=== PATIENT | female | born 1955 | race Caucasian/White ===

== ENCOUNTER 2020-03-14 14:57 | Outpatient (REF) | payer OTHER, SELFPAY | END 2020-03-14 14:58 | disposition home or self-care (01) | LOC: HO.LAB 14:57 | PROVIDERS: PCP Family Medicine; Visit Provider Internal Medicine | DX: Z20.828 Contact with and (suspected) exposure to other viral communicable diseases (principal) | CPT/HCPCS: U0003 ==

== ENCOUNTER 2020-07-26 08:56 | Outpatient (REF) | payer OTHER, SELFPAY ==
--- NOTE | ~2020-07-26 | MM_ITS ---
EXAMINATION: MM SCREENING DIGITAL BREAST TOMOSYNTHESIS, BILATERAL CLINICAL INFORMATION: Screening. Asymptomatic. The lifetime risk of breast cancer based on the Tyrer-Cuzick Model is 15%. COMPARISON: Mammography: 11/16/2018, 09/03/2017, 10/14/2014 TECHNIQUE: Digital breast tomosynthesis is performed in both the craniocaudal and mediolateral oblique views along with computer-aided detection (CAD). Synthesized 2D images are generated from the tomosynthesis. FINDINGS: The breasts are almost entirely fatty (ACR BI-RADS breast composition Category a). There are no significant masses, abnormal calcifications, or other abnormalities. Background stromal and fibroglandular densities are stable. There is no developing density. The axilla and skin contours are unremarkable. MM/MM tomosynthesis screening BI IMPRESSION: No mammographic evidence of malignancy. ASSESSMENT: BI-RADS 1: Negative RECOMMENDATION: Routine annual mammography screening. This patient's information was entered into a reminder system with a target due date for their next mammogram.
== END 2020-07-26 08:57 | disposition home or self-care (01) ==
LOC: HO.MAMMO 08:56
PROVIDERS: PCP Family Medicine; Visit Provider Family Medicine
DX: Z12.31 Encounter for screening mammogram for malignant neoplasm of breast (principal)
CPT/HCPCS: 77063; 77067

== ENCOUNTER 2021-01-05 16:01 | Emergency (ER) | payer OTHER, SELFPAY | END 2021-01-05 16:45 | disposition left against medical advice (07) | LOC: HO.ED 16:44 | PROVIDERS: Emergency Provider Emergency Medicine; PCP Family Medicine | DX: R10.9 Unspecified abdominal pain (principal) ==

== ENCOUNTER 2021-08-08 08:39 | Outpatient (REF) | payer OTHER, SELFPAY ==
--- NOTE | ~2021-08-08 | MM_ITS ---
EXAMINATION: MM SCREENING DIGITAL BREAST TOMOSYNTHESIS, BILATERAL CLINICAL INFORMATION: Screening. Asymptomatic. The lifetime risk of breast cancer based on the Tyrer-Cuzick Model is 14%. COMPARISON: Mammography: 07/26/2020, 11/16/2018, 09/03/2017 TECHNIQUE: Digital breast tomosynthesis is performed in both the craniocaudal and mediolateral oblique views along with computer-aided detection (CAD). Synthesized 2D images are generated from the tomosynthesis. FINDINGS: There are scattered areas of fibroglandular density (ACR BI-RADS breast composition Category b). Breast tissue composition borders on predominantly fatty. Background stromal and fibroglandular densities are similar to prior studies. There are incidental intramammary nodes posterior breasts. There are no significant masses, abnormal calcifications, or other abnormalities. No significant changes from prior studies. MM/MM tomosynthesis screening BI IMPRESSION: No mammographic evidence of malignancy. ASSESSMENT: BI-RADS 1: Negative RECOMMENDATION: Routine annual mammography screening. This patient's information was entered into a reminder system with a target due date for their next mammogram.
== END 2021-08-08 08:40 | disposition home or self-care (01) ==
LOC: HO.MAMMO 08:39
PROVIDERS: PCP Family Medicine; Visit Provider Family Medicine
DX: Z12.31 Encounter for screening mammogram for malignant neoplasm of breast (principal)
CPT/HCPCS: 77063; 77067

== ENCOUNTER 2022-08-14 08:33 | Outpatient (REF) | payer OTHER, SELFPAY ==
--- NOTE | ~2022-08-14 | MM_ITS ---
EXAMINATION: MM SCREENING DIGITAL BREAST TOMOSYNTHESIS, BILATERAL CLINICAL INFORMATION: Screening. Asymptomatic. The lifetime risk of breast cancer based on the Tyrer-Cuzick Model is 15%. COMPARISON: Mammography: 08/08/2021, 07/26/2020, 11/16/2018 TECHNIQUE: Digital breast tomosynthesis is performed in both the craniocaudal and mediolateral oblique views along with computer-aided detection (CAD). Synthesized 2D images are generated from the tomosynthesis. FINDINGS: The breasts are almost entirely fatty (ACR BI-RADS breast composition Category a). There are no significant masses, abnormal calcifications, or other abnormalities. Parenchymal pattern is similar to prior studies. Background stromal and fibroglandular densities are similar to exams and there is no developing density or architectural abnormality. The axilla are unremarkable. Skin contours are smooth. MM/MM tomosynthesis screening BI IMPRESSION: No mammographic evidence of malignancy. ASSESSMENT: BI-RADS 1: Negative RECOMMENDATION: Routine annual mammography screening. This patient's information was entered into a reminder system with a target due date for their next mammogram.
== END 2022-08-14 08:34 | disposition home or self-care (01) ==
LOC: HO.MAMMO 08:33
PROVIDERS: Visit Provider Family Medicine
DX: Z12.31 Encounter for screening mammogram for malignant neoplasm of breast (principal)
CPT/HCPCS: 77063; 77067

== ENCOUNTER 2023-03-24 09:58 | Inpatient (IN) | payer MEDICARE, OTHER, SELFPAY ==
[2023-03-24] VITALS (16 sets, daily range): BP systolic 109–146; BP diastolic 63–86; PULSE 65–100; RESP 16–18; TEMP 36.1–37.5; O2SAT 92–98; BMI 33.8
--- NOTE | ~2023-03-24 | CT_ITS ---
EXAMINATION: CT ABDOMEN AND PELVIS WITH CONTRAST CLINICAL INFORMATION: Lower abdominal pain. COMPARISON: None available. TECHNIQUE: Multidetector volumetric images were obtained from the superior aspect of the liver through the pubic symphysis following administration 85 mL of Omnipaque 350 intravenous contrast. Sagittal and coronal reformatted images were obtained on the technologist's workstation. Oral contrast: No This CT examination was performed using dose optimization techniques as appropriate, variously including the following: *Automated exposure control *Adjustment of mA and/or kV according to patient size (this includes techniques or standardized protocols for targeted exams where dose is matched to indication/reason for exam; i.e. extremities or head) *Use of iterative reconstruction technique DLP: 749 mGy-cm FINDINGS: LUNG BASES: Large hiatal hernia. LIVER, GALLBLADDER, AND BILIARY TREE: The liver is decreased in attenuation. No biliary ductal dilatation is present. The gallbladder is surgically absent. PANCREAS: Unremarkable. SPLEEN: Unremarkable. ADRENAL GLANDS: Unremarkable. KIDNEYS AND URETERS: The kidneys are symmetric in size and enhancement. Nonobstructing bilateral renal calculi. No hydronephrosis or perinephric stranding. BLADDER: Unremarkable. GASTROINTESTINAL TRACT: Dilated small bowel loops measuring up to 2.5 cm proximal to the ventral hernia. Distal small bowel loops are relatively decompressed. Scattered diverticula. ABDOMINAL WALL: Small fat-containing umbilical hernia. There is a infraumbilical ventral hernia containing dilated small bowel loops measuring up to 2.5 cm. The hernia measures 9.1 x 11.8 x 6.5 cm. There is fluid in the hernia sac with associated mesenteric edema. The neck of the hernia measures 2.6 cm. LYMPH NODES: No bulky lymphadenopathy. VASCULAR: Normal caliber abdominal aorta. PELVIC VISCERA: Unremarkable. OSSEOUS STRUCTURES: No destructive bone lesions. Anterior wedging of T11 and T12 vertebral bodies. CT/CT abdomen pelvis w IV con IMPRESSION: 9.1 x 11.8 x 6.5 cm ventral hernia containing small bowel. There is proximal dilatation of the small bowel wall up to 2.5 cm while exiting distal small bowel loops are relatively decompressed. Findings most likely represent incarcerated ventral hernia with developing small bowel obstruction. Surgical consultation is advised.
[2023-03-24 10:19] LABS: MANUAL DIFF FLAG NO
[2023-03-24 10:20] LABS: Basophils Absolute Auto 0.1 X10*3/uL (0.0-0.2); Basophils Percent Auto 0.8 % (0-2); Eosinophils Percent Auto 0.2 % (0-4); Hematocrit 45.7 % (37.0-47.0); Hemoglobin 14.8 g/dl (12.0-16.0); Imm Gran Abs Auto 0.04 X10*3/uL (0.00-0.03); Imm Gran Pct Auto 0.4 % (0.0-0.4); Lymphocytes Absolute Auto 1.1 X10*3/uL (1.2-4.9); Lymphocytes Percent Auto 10.6 % (20-40); Mean Corpuscular HGB Conc 32.4 g/dl (31.0-35.0); Mean Corpuscular Hemoglobin 28.6 pg (27.0-33.0); Mean Corpuscular Volume 88.2 fL (80.0-98.0); Mean Platelet Volume 11.3 fL (9.4-12.3); Monocytes Absolute Auto 0.4 X10*3/uL (0.1-1.2); Monocytes Percent Auto 3.3 % (2-11); Neutrophils Percent Auto 84.7 % (45-73); Platelet Count 201 X10*3/uL (160-400); Red Blood Count 5.18 X10*6/uL (4.20-5.50); Red Cell Distribution Width 13.8 % (11.0-16.0); White Blood Count 10.7 X10*3/uL (4.8-10.8)
--- NOTE | 2023-03-24 10:24 | ED_ITS ---
HPI - General Adult General Chief complaint: Abdominal Pain Stated complaint: Abd pain Time Seen by Provider: 03/24/23 10:16 Source: patient Mode of arrival: ambulatory Limitations: no limitations History of Present Illness HPI narrative: Patient is a 67-year-old female with a PMH of gallstones s/p cholecystectomy and abdominal hernia presenting for several weeks of abdominal discomfort worsening over the last 6 hours with associated nausea and vomiting. She states the pain is in the LLQ where the known hernia is. At baseline she says the hernia does not cause discomfort. Her GI surgeon instructed her to go to the emergency department due to concern for stragulation/incarceration and bowel obstruction. Last bowel movement was this morning still passing gas. Denies fever, chills, headache, lightheadedness, chest pain, sob, diarrhea, consipation, urinary symptoms, and weakness. Related Data Allergies Allergy/AdvReac Type Severity Reaction Status Date / Time No Known Allergies Allergy Unverified 01/27/20 16:07 Review of Systems 2 Review of Systems: Constitutional : No Weight loss, No Fever, No Chills, No Fatigue, No Malaise ENT/Mouth : No sore throat, No Rhinorrhea Eyes: No Eye Pain, No Swelling, No Redness Cardiovascular : No Chest Pain, No SOB, No Dyspnea on Exertion, No Orthopnea, No Edema, No Palpitations Respiratory : No Cough, No Sputum, No Wheezing Gastrointestinal : + Nausea, + Vomiting, No Diarrhea, No Constipation, + abdominalm Pain, No Hematochezia, No Melena Genitourinary : No Dysuria, No Urinary Frequency, No Hematuria, Musculoskeletal : No joint pain, No Myalgias, No Joint Swelling Skin : No Skin Lesions, No rash Neuro : No Weakness, No Numbness, No Dizziness, No Headache Psych : No Anxiety/Panic, No Depression All other systems reviewed and are negative Yes all other systems are reviewed and are negative [facility] Past Medical History Attestation statement: The following information was validated with the patient. Source: old records reviewed and nursing notes reviewed Social History Social History Smoked in Last 30 Days: No Use of substances other than those prescribed or required for medical reasons: No Advance Directives: No Advance Directives Information Provided: Yes Physical Exam ED Vital Signs: Vital Signs - 24 hr 03/24/23 10:05 03/24/23 12:00 Temperature 98.0 F 98.8 F Pulse Rate 74 91 Respiratory Rate 18 18 Blood Pressure 130/74 137/82 Pulse Oximetry 98 93 Oxygen Delivery Method Room Air BMI result Body Mass Index 33.8 vss Appearance: Alert.? Oriented X3.? No acute distress.? Head: Normocephalic, atraumatic, no step-offs or deformities Eyes: Pupils equal, round and reactive to light.? ENT: Pharynx normal.??External ears normal. Neck: Normal inspection.? Neck supple.? CVS: Normal heart rate and rhythm.? Pulses normal.? Respiratory: No respiratory distress.? Breath sounds normal.? Abdomen: Tenderness and large firm mass in the LLQ hard to reduce secondary to pain. No rebound tenderness. Normoactive bowel sounds. Skin: Skin warm and dry.? Normal skin color.? Normal skin turgor.? Extremities: No lower extremity edema.? No calf ttp. 5/5 strength to bilateral upper and lower extremities Back: No midline tenderness, no C-spine tenderness, full range of motion, no CVA tenderness bilaterally Neuro: Oriented X 3.? No motor deficit.? No sensory deficit. Course Reevaluation(s) Reevaluation #1: CBC within normal limits. Chemistry no acute findings requiring intervention. Normal lactic acid. CPK elevated 183. I did reach out to General surgery before CT scan resulted I am concerned for incarcerated ventral hernia question containing small bowel loops. Patient remains NPO Time: 12:22 Reevaluation #2: 9.1 by Leary 0.8 x 6.5 ventral hernia containing small bowel proximal dilation of the small bowel wall up to 2.5 cm while exiting the distal small bowel loops are relatively decompressed concerning for incarcerated ventral hernia with developing SBO. General surgery to take patient to the operating room at this time. Time: 13:14 Medications Administered Discontinued Medications Generic Name Dose Route Start Last Admin Trade Name Freq PRN Reason Stop Dose Admin Hydromorphone HCl 0.5 mg 03/24/23 12:38 03/24/23 12:57 Hydromorphone Hcl 0.5 Mg/0.5 Ml Syringe IVPUSH 03/24/23 12:39 0.5 mg ONCE ONE Administration Protocol Iohexol 85 ml 03/24/23 12:03 03/24/23 12:05 Iohexol 350 Mg/Ml 75 Ml Infus..Btl IV 03/24/23 12:04 85 ml ONCE ONE Administration Morphine Sulfate 4 mg 03/24/23 10:51 03/24/23 11:35 Morphine Sulfate 4 Mg/Ml Cartridge IVPUSH 03/24/23 10:52 4 mg ONCE ONE Administration Protocol Medical Decision Making Medical Decision Making [facility] Narrative: 1042 67-year-old female with a PMH of gallstones s/p cholecystectomy and abdominal hernia presenting for acutely worsening abdominal discomfort associated with n/v PE w/ tenderness and large firm mass in the LLQ Concern for strangulated or incarcerated herniation vs. SBO secondary to adhesions. Unlikely acute abdomen, ischemic colitis, diverticulitis, appendicitis, ovarian mass, kidney stone, atypical MA, AAA, or aortic dissection. Plan- labs, urine, imaging Differential Diagnosis Differential Diagnoses: The differential diagnosis associated with the presentation includes Concern for strangulated or incarcerated herniation vs. SBO secondary to adhesions. Unlikely acute abdomen, ischemic colitis, diverticulitis, appendicitis, ovarian mass, kidney stone, atypical MA, AAA, or aortic dissection. Admission/Observation Consideration of admission/observation: Escalation of care including admission/observation considered Consult Healthcare Provider Management of the patient was discussed with: Pier Worker (general surgery ) Lab Data [facility] Lab Attestation statement: I reviewed the patient's lab results. 03/24/23 10:15 03/24/23 10:15 Labs: Lab Results 03/24/23 03/24/23 Range/Units 10:15 11:24 WBC 10.7 (4.8-10.8) X10*3/uL RBC 5.18 (4.20-5.50) X10*6/uL Hgb 14.8 (12.0-16.0) g/dl Hct 45.7 (37.0-47.0) % MCV 88.2 (80.0-98.0) fL MCH 28.6 (27.0-33.0) pg MCHC 32.4 (31.0-35.0) g/dl RDW 13.8 (11.0-16.0) % Plt Count 201 (160-400) X10*3/uL MPV 11.3 (9.4-12.3) fL Immature Gran % (Auto) 0.4 (0.0-0.4) % Neut % (Auto) 84.7 H (45-73) % Lymph % (Auto) 10.6 L (20-40) % [place] % (Auto) 3.3 (2-11) % Eos % (Auto) 0.2 (0-4) % Baso % (Auto) 0.8 (0-2) % Lymph # (Auto) 1.1 L (1.2-4.9) X10*3/uL [place] # (Auto) 0.4 (0.1-1.2) X10*3/uL Eos # (Auto) 0.0 (0.0-0.4) X10*3/uL Baso # (Auto) 0.1 (0.0-0.2) X10*3/uL Abs Immat Gran (auto) 0.04 H (0.00-0.03) X10*3/uL Absolute Neuts (auto) 9.0 H (2.0-8.3) x10*3/uL Absolute Nucleated RBC 0.000 (0.0-0.012) X10*3/uL Nucleated RBC % (auto) 0.0 (0.0-0.2) /100WBC Sodium 141 (135-145) mmol/L Potassium 4.1 (3.3-5.1) mmol/L Chloride 102 (96-108) mmol/L Carbon Dioxide 26 (22-29) mmol/L Anion Gap 17 (12-20) BUN 12 (9-16) mg/dL Creatinine 0.83 (0.5-1.4) mg/dL Estim Creat Clear Calc 67.8 Estimated GFR > 60 Random Glucose 186 H (60-115) mg/dL Lactic Acid 1.8 (0.5-2.0) mmol/L Calcium 10.3 H (8.4-10.2) mg/dL Total Bilirubin 0.6 (0.0-1.0) mg/dL Direct Bilirubin 0.2 (0.0-0.5) mg/dL AST 17 (5-31) U/L ALT 20 (0-31) U/L Alkaline Phosphatase 84 (39-117) U/L Total Creatine Kinase 183 H (26-140) U/L Total Protein 7.2 (6.5-8.0) g/dL Albumin 4.2 (3.5-5.0) g/dL Lipase 12 (8-78) U/L Independent Interpretation I performed an independent interpretation of an: CT Scan (CT/CT abdomen pelvis w IV con IMPRESSION: 9.1 x 11.8 x 6.5 cm ventral hernia containing small bowel. There is proximal dilatation of the small bowel wall up to 2.5 cm while exiting distal small bowel loops are relatively decompressed. Findings most likely represent incarcerated ventral hernia w) Radiology Impression Discussion of test interpretation with radiology: I have reviewed the radiologist's reading. External Record Review External record reviewed: Inpatient record, Office record, Outpatient record, Prior outpatient labs, Primary care record and Outside ED record Critical Care Time Critical Care Time Critical Care Time: Yes Total Critical Care Time: 45 Attestation: I attest to this time spent taking care of the patient, obtaining history, physical, reviewing labs, imaging, speaking to my attending, speaking to specialist. Discharge Plan Discharge Clinical Impression: Incarcerated ventral hernia, SBO (small bowel obstruction) Patient Disposition: Admitted As Inpatient
[2023-03-24 10:44] LABS: Anion Gap 17 (12-20)
[2023-03-24 10:48] LABS: Alanine Aminotransferase 20 U/L (0-31); Albumin Level 4.2 g/dL (3.5-5.0); Alkaline Phosphatase 84 U/L (39-117); Aspartate Amino Transferase 17 U/L (5-31); Bilirubin Direct 0.2 mg/dL (0.0-0.5); Bilirubin Total 0.6 mg/dL (0.0-1.0); Blood Urea Nitrogen 12 mg/dL (9-16); Calcium 10.3 mg/dL (8.4-10.2); Carbon Dioxide 26 mmol/L (22-29); Chloride 102 mmol/L (96-108); Creatinine Clr Calc Pharmacy 67.8; Estimated Glomerular Filt Rate > 60; Glucose Random 186 mg/dL (60-115); Lipase 12 U/L (8-78); Potassium 4.1 mmol/L (3.3-5.1); Sodium 141 mmol/L (135-145); Total Protein 7.2 g/dL (6.5-8.0)
[2023-03-24] MEDS: Morphine Sulfate 4 MG/ML CARTRIDGE IVPUSH (11:35)
[2023-03-24 11:43] LABS: Lactic Acid 1.8 mmol/L (0.5-2.0)
[2023-03-24] MEDS: iohexoL 350 MG/ML 75 ML INFUS..BTL 85 ML IV (12:05)
[2023-03-24] MEDS: HYDROmorphone HCl 0.5 MG/0.5 ML SYRINGE IVPUSH (12:57)
--- NOTE | 2023-03-24 12:57 | HO.ANESPROP2 ---
[facility] Active Problems Active Problems: vertigo GERD Surgical History Surgical History Hx laparoscopic cholecystectomy History of Problems with Anesthesia: No Social History Social History Patient Tobacco Use Status: Current everyday Tobacco user Tobacco use type: Cigarette Cigarettes Per Day: 10 Meds Allergies Allergy/AdvReac Type Severity Reaction Status Date / Time No Known Allergies Allergy Unverified 01/27/20 16:07 Exam Exam Date and Time: March 24, 2023 1257 Height,Weight and Vital Signs: Height 5 ft 2 in Weight 83.915 kg Last Vital Signs Temp 98.8 F 03/24/23 12:00 Pulse 91 03/24/23 12:00 Resp 18 03/24/23 12:00 BP 137/82 03/24/23 12:00 Pulse Ox 93 03/24/23 12:00 O2 Del Method Room Air 03/24/23 12:00 Pertinent Lab Results Pertinent Lab Results: Laboratory Tests 03/24/23 03/24/23 10:15 11:24 WBC 10.7 RBC 5.18 Hgb 14.8 Hct 45.7 MCV 88.2 MCH 28.6 MCHC 32.4 RDW 13.8 Plt Count 201 MPV 11.3 Immature Gran % (Auto) 0.4 Neut % (Auto) 84.7 H Lymph % (Auto) 10.6 L [place] % (Auto) 3.3 Eos % (Auto) 0.2 Baso % (Auto) 0.8 Lymph # (Auto) 1.1 L [place] # (Auto) 0.4 Eos # (Auto) 0.0 Baso # (Auto) 0.1 Abs Immat Gran (auto) 0.04 H Absolute Neuts (auto) 9.0 H Absolute Nucleated RBC 0.000 Nucleated RBC % (auto) 0.0 Sodium 141 Potassium 4.1 Chloride 102 Carbon Dioxide 26 Anion Gap 17 BUN 12 Creatinine 0.83 Estim Creat Clear Calc 67.8 Estimated GFR > 60 Random Glucose 186 H Lactic Acid 1.8 Calcium 10.3 H Total Bilirubin 0.6 Direct Bilirubin 0.2 AST 17 ALT 20 Alkaline Phosphatase 84 Total Creatine Kinase 183 H Total Protein 7.2 Albumin 4.2 Lipase 12 Airway Mallampati Class: II TM Dist: >3cm Neck ROM: Full Loose/Missing/Broken Teeth: No Heart: RRR Lungs: CTA Assessment and Plan Assessment Anesthesia Assessment: Anesthesia Plan Discussed and Chart Reviewed Final Anesthetic Review History of Problems with Anesthesia: No NPO: Yes ASA Class: II and Emergency Final Preanesthetic Review: Meds/Allgs Chart Reviewed, Consent Obtained/Reviewed and Anes Risks/Benef Reviewed Patient Risk: High (full stomach precautions ) Procedure Risk: Intermediate Anesthetic Plan Anesthetic Plan: GA Disposition: Standard PACU
--- NOTE | 2023-03-24 13:06 | PC.NURSE ---
Meghan Christi (daughter) [phone] All belongings including silver colored jewlery will be taken home by daughter. Pt in agreement
--- NOTE | 2023-03-24 13:08 | P.HPGS_ITS ---
History of Present Illness History of Present Illness Date of Service: 03/24/23 Chief complaint: Abd pain Narrative: Mary Jo Barraza is a 67 year old female with PMH of GERD, vertigo, hx of laparoscopic cholecystectomy who presents to the ED with complaints of acute onset abdominal pain. Pt states she has a known hernia at her umbilicus and reports she woke up at 5 this morning with severe abdominal pain at the hernia site. She tried to sip coffee and developed nausea and vomiting. She went to the bathroom in attempts to alleviate her pain and did have a bowel movement early this morning however she has not been passing gas since onset of the pain. She reports bloating. She called her GI doctor who advised her to come to the ED for evaluation. In the ED, CT scan abd/pelvis was performed which shows a hernia at the umbilicus with incarcerated loops of bowel. CBC, BMP were obtained which were WNL. Lactic acid was normal. Attempts at reduction in the ED were performed but were unsuccessful due to pain. She reports continued severe pain despite analgesics. Review of Systems Constitutional: Constitutional: Denies chills and Denies fever(s) ENT: Denies dizziness Cardiovascular: Cardiovascular: Denies chest pain, Denies palpitations and Denies dyspnea Respiratory: Respiratory: Denies cough and Denies dyspnea Gastrointestinal: Gastrointestinal: Reports as per HPI and Denies diarrhea Genitourinary: Genitourinary: Denies hematuria and Denies dysuria Integumentary/Breasts: Skin/Breast: Denies rash and Denies jaundice Neurologic: Denies dizziness Endocrine: Endocrine: Denies palpitations [facility] Surgical History Surgical History (Updated 03/24/23 @ 13:28 by Praveena Scanlon PA-C) Hx laparoscopic cholecystectomy Social History Social History Smoked in Last 30 Days: No Use of substances other than those prescribed or required for medical reasons: No Advance Directives: No Advance Directives Information Provided: Yes Meds Allergies Allergy/AdvReac Type Severity Reaction Status Date / Time No Known Allergies Allergy Unverified 01/27/20 16:07 Physical Exam Vital Signs: Vital Signs: Last Vital Signs Temp 98.8 F 03/24/23 12:00 Pulse 91 03/24/23 12:00 Resp 18 03/24/23 12:00 BP 137/82 03/24/23 12:00 Pulse Ox 93 03/24/23 12:00 O2 Del Method Room Air 03/24/23 12:00 BMI result Body Mass Index 33.8 Const: General: comfortable, no acute distress and alert Orientation/consciousness: patient oriented x3 Resp: Effort & Inspection: normal respiratory effort Cardio: Rate: regular rate GI: Inspection: Yes distended and Yes scar Palpation (GI): Soft to palpation, Tenderness to palpation present (GI) (marked tenderness at umbilicus; unable to reduce ), no guarding and not rigid Percussion: Yes normal to percussion Skin: General skin exam: no rashes or lesions noted Neuro: General: patient oriented x3 Extrem: General: Yes no clubbing, cyanosis or edema Results Results Labs: Short CBC 03/24/23 Range/Units 10:15 WBC 10.7 (4.8-10.8) X10*3/uL Hgb 14.8 (12.0-16.0) g/dl Hct 45.7 (37.0-47.0) % Plt Count 201 (160-400) X10*3/uL BMP 03/24/23 10:15 Sodium 141 Potassium 4.1 Chloride 102 Carbon Dioxide 26 BUN 12 Creatinine 0.83 Calcium 10.3 H Cardiac Enzymes 03/24/23 Range/Units 10:15 Total Creatine Kinase 183 H (26-140) U/L Liver Function 03/24/23 Range/Units 10:15 Total Bilirubin 0.6 (0.0-1.0) mg/dL Direct Bilirubin 0.2 (0.0-0.5) mg/dL AST 17 (5-31) U/L ALT 20 (0-31) U/L Alkaline Phosphatase 84 (39-117) U/L Albumin 4.2 (3.5-5.0) g/dL Assessment and Plan (1) Incarcerated ventral hernia: Status: Acute (2) SBO (small bowel obstruction): Status: Acute Plan 67 year old female with hx of laparoscopic cholecystectomy who developed acute onset of abdominal pain, nausea and vomiting found to have umbilical hernia with incarcerated small bowel loops and associated small bowel obstruction on CT scan. Patient in significant amount of pain and hernia unable to be reduced. It was therefore recommended to proceed with repair of incarcerated hernia with mesh. Technique of the procedure, risks and benefits including infection, bleeding, injury to bowel, hernia recurrence were discussed. She understands and wants to proceed. She was added onto the OR schedule for today. Quality Stroke Does the patient have a stroke diagnosis?: No VTE Prior VTE?: No VTE Risk Level:: Surgical - high VTE Device Contraindication: N/A - Device Ordered VTE Drug Contraindication: N/A - Med Ordered Procedures Date of Service Date of Service: 03/24/23
[2023-03-24 13:26] LABS: Appearance Urine Clear; Color Urine Yellow; Glucose Urine UA Negative (Negative); Leukocyte Esterase Urine Negative (Negative); Nitrite Urine Negative (Negative); PH 7.5 (5.0-9.0); Specific Gravity - Urine >= 1.030 (1.005-1.025); Urine Blood Negative (Negative); Urine Ketones 15 mg/dL (Negative); Urine Protein Negative (Neg-Trace)
--- NOTE | 2023-03-24 15:30 | P.OP_ITS ---
Operative Note Operative Note Date of Service: 03/24/23 Narrative: Preoperative diagnosis: [] Incarcerated strangulated ventral incisional hernia Postop diagnosis: [] Same Procedure [] exploratory laparotomy, reduction of incarcerated, strangulated hernia, primary hernia repair with Bard mesh Surgeon: [] Sharad Air Conditioning Manager: [] Capo Type of Anesthesia: [] General Indication for surgery: [] Infraumbilical ventral incarcerated strangulated incisional hernia with small bowel contents. Very small opening in the hernia defect. Transition zone of dilated edematous proximal bowel and decompressed bowel was found. Bowel was edematous, and dilated but viable and uneventfully reduced. Very corpulent abdomen Findings: [] Patient brought to the operating room, placed on operative table in supine position, after adequate level of general anesthesia was induced, the patient's abdomen is prepped and draped in usual sterile fashion. Using an infraumbilical midline incision, this carried down through skin, subcutaneous tissue, where a very massive hernia sac was identified and circumferentially dissected down to fascia. Sac was opened where findings were as noted above. Small bowel was uneventfully reduced. Redundant hernia sac was amputated using Bovie. Fascia margins were circumferentially cleared. An appropriately sized Bard mesh was placed in the defect, and the superficial layer of the mesh was circumferentially sutured to the surrounding fascia using interrupted 0 Ethibond suture. A completion the procedure, mesh was in good position with no tension or gaps. Was irrigated, secured hemostasis, and closed in the following manner; subcutaneous tissue was reapproximated using up to 3-0 Vicryl sutures. Interrupted inverted deep dermal 3-0 Vicryl sutures followed by running subcuticular 4-0 Vicryl sutures were placed. Steri-Strips and sterile dressings were applied. Wound was infiltrated 0.5% Marcaine at completion. Sponge, needle, instrument counts reported correct. Patient tolerated procedure well and emerged anesthesia stable condition. EBL minimal
[2023-03-24] MEDS: 0.9 % Sodium Chloride Flush 3 ML SYRINGE IVFLUSH ×2 (18:28→19:55)
[2023-03-24] MEDS: Lactated Ringers 1,000 ML 80 ML IVCONT (18:28)
--- NOTE | 2023-03-24 20:01 | PHA.MEDREC ---
Pharmacy Consult ? Medication Reconciliation Pharmacy has completed the medication reconciliation. Patient reported medications. Nica Kenyon, CarterD
[2023-03-24] MEDS: Acetaminophen 325 MG TABLET 650 MG PO (23:25)
[2023-03-25 02:56] VITALS: BP 121/82; PULSE 66; RESP 18; TEMP 36.3; O2SAT 96
--- NOTE | 2023-03-25 04:47 | PC.NURSE ---
pt had a hernia repair at the abd. under the umbilical cord. dressing is clean and intact, binder in place. pt walking to the BR afew tiems with no problems. mild pain provided tylenol as pt's request. BS is active all 4 quadrants with mild tender, most soft abd, educated to pt how to use I.S. and post-op care. Avoid strenuous activities, such as biking, jogging, weight lifting, or aerobic exercise, until your doctor says it is okay. I.S 1500mL with good effectiveness. lung sounds dim to clear. will cont monitor s/s of post op. vitals are stable as document. BP 121/82 HR 66, RA 96%
[2023-03-25] MEDS: Lactated Ringers 1,000 ML 80 ML IVCONT (05:10)
[2023-03-25 08:00] VITALS: BP 118/85; PULSE 76; RESP 16; TEMP 36.7; O2SAT 95
--- NOTE | 2023-03-25 08:03 | PM.PNGS ---
Subjective Subjective Date of Service: 03/25/23 Interval history: Feels well this morning. Has mild pain at incision site and is comfortable with tylenol. Tolerating solid diet without nausea or vomiting. Passing flatus. OOB to bathroom without difficulty. Wants to go home. Physical Exam Vital Signs: Vital Signs: Last Vital Signs Temp 97.4 F 03/25/23 02:56 Pulse 66 03/25/23 02:56 Resp 18 03/25/23 02:56 BP 121/82 03/25/23 02:56 Pulse Ox 96 03/25/23 02:56 O2 Del Method Room Air 03/25/23 02:56 O2 Flow Rate 6 03/24/23 15:10 BMI result Body Mass Index 33.8 Const: General: comfortable, no acute distress and alert Orientation/consciousness: patient oriented x3 Resp: Effort & Inspection: normal respiratory effort GI: Inspection: No distended and Yes incision (dressing c/d/i) Palpation (GI): Soft to palpation, Tenderness to palpation present (GI) (mild incisional), no guarding and not rigid Percussion: Yes normal to percussion Skin: General skin exam: no rashes or lesions noted Neuro: General: patient oriented x3 and moves all extremities Objective Data Active Medications Acetaminophen (Acetaminophen 325 Mg Tablet) 650 mg PO Q6H PRN PRN Reason: Pain, Mild (Pain Scale 1-3) Last Admin: 03/24/23 23:25 Dose: 650 mg Documented By: RIO Al Hydroxide/Mg Hydroxide (Magnesium Hydrox/Alum Hydrox 30 Ml Oral.Susp) 30 ml PO Q6H PRN PRN Reason: Heartburn Heparin Sodium (Porcine) (Heparin Sodium,Porcine 5,000 Unit/Ml Vial) 5,000 unit SUBCUT Q8H [facility] Lactated Ringer's (Lr) 1,000 mls @ 80 mls/hr IVCONT .[id number] [facility] Last Admin: 03/25/23 05:10 Dose: 80 mls/hr Documented By: RIO Melatonin (Melatonin 3 Mg Tablet) 6 mg PO BEDTIME PRN PRN Reason: Insomnia Morphine Sulfate (Morphine Sulfate 2 Mg/Ml Cartridge) 4 mg IVPUSH Q4H PRN; Protocol PRN Reason: Pain, Severe (Pain Scale 7-10) Nicotine (Nicotine 7 Mg Patch.Td24) 7 mg TRANSDERMA DAILY [facility] Ondansetron HCl (Ondansetron Hcl 4 Mg/2 Ml Vial) 4 mg IVPUSH Q8H PRN PRN Reason: Nausea and Vomiting Oxycodone HCl (Oxycodone Hcl Immed Release 5 Mg Tablet) 5 mg PO Q4H PRN PRN Reason: Pain, Moderate(Pain Scale 4-6) Sodium Chloride (0.9 % Sodium Chloride Flush 3 Ml Syringe) 3 ml IVFLUSH QSHIFT [facility] Last Admin: 03/24/23 19:55 Dose: 3 ml Documented By: RIO Labs 03/24/23 10:15 03/24/23 10:15 Labs: Laboratory Results - last 24 hr 03/24/23 03/24/23 03/24/23 10:15 11:24 13:09 MCV 88.2 MCH 28.6 MCHC 32.4 RDW 13.8 Plt Count 201 MPV 11.3 Immature Gran % (Auto) 0.4 Neut % (Auto) 84.7 H Lymph % (Auto) 10.6 L [facility] % (Auto) 3.3 Eos % (Auto) 0.2 Baso % (Auto) 0.8 Lymph # (Auto) 1.1 L [facility] # (Auto) 0.4 Eos # (Auto) 0.0 Baso # (Auto) 0.1 Abs Immat Gran (auto) 0.04 H Absolute Neuts (auto) 9.0 H Absolute Nucleated RBC 0.000 Nucleated RBC % (auto) 0.0 Anion Gap 17 Estim Creat Clear Calc 67.8 Estimated GFR > 60 Random Glucose 186 H Lactic Acid 1.8 Calcium 10.3 H Total Bilirubin 0.6 Direct Bilirubin 0.2 AST 17 ALT 20 Alkaline Phosphatase 84 Total Creatine Kinase 183 H Total Protein 7.2 Albumin 4.2 Lipase 12 Urine Color Yellow Urine Appearance Clear Urine pH 7.5 Ur Specific [place] >= 1.030 H Urine Protein Negative Urine Glucose (UA) Negative Urine Ketones 15 Urine Blood Negative Urine Nitrite Negative Ur Leukocyte Esterase Negative Procedures Date of Service Date of Service: 03/25/23 Progress Note: A&P Assessment and plan (1) Incarcerated ventral hernia: Status: Acute Plan POD #1 s/p repair of incarcerated incisional hernia with mesh. She is doing well post op with good pain control, tolerating solid diet and with GI function. Abd is benign with appropriate post op tenderness, dressing c/d/i. Stable for dc to home today, f/u in 1 week in office. Patient comfortable with plan. Time Spent With Patient Time: Total time managing care of this patient today ____ minutes. Quality Stroke Does the patient have a stroke diagnosis?: No VTE Prior VTE?: No VTE Risk Level:: Surgical - high VTE Device Contraindication: N/A - Device Ordered VTE Drug Contraindication: N/A - Med Ordered
[2023-03-25] MEDS: 0.9 % Sodium Chloride Flush 3 ML SYRINGE IVFLUSH (08:05)
[2023-03-25] MEDS: Omeprazole 20 MG CAPSULE.DR PO (08:05)
--- NOTE | 2023-03-25 09:06 | MHC.CM.PN ---
pt dcd home no servies
--- NOTE | 2023-03-25 09:40 | PM.DS ---
DS: Providers Provider Date of Service: 03/25/23 Date of admission: 03/24/23 14:45 Date of discharge: 03/25/23 Primary care physician: Pito Meza MD Attending physician on admission: Duarte Orourke Attending physician on discharge: Duarte Orourke DS: Diagnosis Discharge Diagnosis (1) Incarcerated ventral hernia: Status: Acute DS: Summary Hospital Course Hospital Course: HPI AT ADMISSION: Mary Jo Barraza is a 67 year old female with PMH of GERD, vertigo, hx of laparoscopic cholecystectomy who presents to the ED with complaints of acute onset abdominal pain. Pt states she has a known hernia at her umbilicus and reports she woke up at 5 this morning with severe abdominal pain at the hernia site. She tried to sip coffee and developed nausea and vomiting. She went to the bathroom in attempts to alleviate her pain and did have a bowel movement early this morning however she has not been passing gas since onset of the pain. She reports bloating. She called her GI doctor who advised her to come to the ED for evaluation. In the ED, CT scan abd/pelvis was performed which shows a hernia at the umbilicus with incarcerated loops of bowel. CBC, BMP were obtained which were WNL. Lactic acid was normal. Attempts at reduction in the ED were performed but were unsuccessful due to pain. She reports continued severe pain despite analgesics. HOSPITAL COURSE:She was admitted to the surgical service for further treatment of her incarcerated incisional hernia. It was recommended to proceed with reduction and repair of the incarcerated incisional hernia given the concern for strangulation of the bowel loops given ongoing pain. She was added onto the OR schedule for that day. On 03/24/23, exploratory laparotomy, reduction of incarcerated, strangulated hernia, primary hernia repair with Bard mesh was performed by Dr. Orourke without complication. The patient tolerated the procedure well and was admitted to the medical/surgical floor for observation. She had an uncomplicated recovery course. On POD #1, she felt well with adequate pain control with Tylenol, tolerating a solid diet with evidence of GI function. Her abdomen was benign with appropriate post op tenderness and dressing c/d/i. She felt ready for discharge. She was discharged to home on 03/25/23 in stable condition. She is to follow up in the office in [address] Orourke. Status at Discharge Functional status at discharge: independent ambulation Overall status at discharge: patient is progressing back to baseline Time Attestation Discharge coordination time: Less than 30 minutes Quality: Safe Use of Opioids Does Pt have an Active Cancer Diagnosis on the Problem List?: No Quality: Stroke Does the patient have a stroke diagnosis?: No Physical Exam Vital Signs: Vital Signs: Last Vital Signs Temp 98.1 F 03/25/23 08:00 Pulse 76 03/25/23 08:00 Resp 16 03/25/23 08:00 BP 118/85 03/25/23 08:00 Pulse Ox 95 03/25/23 08:00 O2 Del Method Room Air 03/25/23 08:00 O2 Flow Rate 6 03/24/23 15:10 BMI result Body Mass Index 33.8 Const: General: comfortable, no acute distress and alert Orientation/consciousness: patient oriented x3 Resp: Effort & Inspection: normal respiratory effort GI: Inspection: No distended and Yes incision (dressing c/d/i) Palpation (GI): Soft to palpation, Tenderness to palpation present (GI) (mild incisional), no guarding and not rigid Percussion: Yes normal to percussion Skin: General skin exam: no rashes or lesions noted Neuro: General: patient oriented x3 and moves all extremities DS: Data Data Completed and Pending Pending studies at discharge: Pending at discharge 03/24/23 14:46 Surgical [PTH] Routine Labs on day of discharge: Laboratory Results - last 24 hr 03/24/23 03/24/23 03/24/23 10:15 11:24 13:09 WBC 10.7 RBC 5.18 Hgb 14.8 Hct 45.7 MCV 88.2 MCH 28.6 MCHC 32.4 RDW 13.8 Plt Count 201 MPV 11.3 Immature Gran % (Auto) 0.4 Neut % (Auto) 84.7 H Lymph % (Auto) 10.6 L [facility] % (Auto) 3.3 Eos % (Auto) 0.2 Baso % (Auto) 0.8 Lymph # (Auto) 1.1 L [facility] # (Auto) 0.4 Eos # (Auto) 0.0 Baso # (Auto) 0.1 Abs Immat Gran (auto) 0.04 H Absolute Neuts (auto) 9.0 H Absolute Nucleated RBC 0.000 Nucleated RBC % (auto) 0.0 Sodium 141 Potassium 4.1 Chloride 102 Carbon Dioxide 26 Anion Gap 17 BUN 12 Creatinine 0.83 Estim Creat Clear Calc 67.8 Estimated GFR > 60 Random Glucose 186 H Lactic Acid 1.8 Calcium 10.3 H Total Bilirubin 0.6 Direct Bilirubin 0.2 AST 17 ALT 20 Alkaline Phosphatase 84 Total Creatine Kinase 183 H Total Protein 7.2 Albumin 4.2 Lipase 12 Urine Color Yellow Urine Appearance Clear Urine pH 7.5 Ur Specific [place] >= 1.030 H Urine Protein Negative Urine Glucose (UA) Negative Urine Ketones 15 Urine Blood Negative Urine Nitrite Negative Ur Leukocyte Esterase Negative Discharge Plan Discharge Anticipated Discharge Date/Time: 03/25/23 07:33 Patient Disposition: Home, Self-Care Discharge Diagnosis: incarcerated hernia, s/p repair with mesh Referrals: Pito Meza MD [Primary Care Provider] - 1 Week Duarte Orourke MD [Physician] - 1 Week Discharge Medications: New docusate sodium [Colace] 100 mg capsule 100 mg PO BID PRN (Reason: constipation) Qty: 30 0RF oxycodone 5 mg tablet 5 mg PO Q4H PRN (Reason: pain (scale score 7-10)) Qty: 20 0RF Rx Instructions: Partial Fill upon patient request. Continued multivitamin Tablet 1 tab PO DAILY omeprazole 20 mg Capsule,Delayed Release(Dr/Ec) 20 mg PO DAILY Systane (PF) 0.4-0.3 % Dropperette 1 drp OPHTHALMIC (EYE) BID Discharge Orders: Discharge Order (Routine); Ordered 03/25/23 Ordered By: Praveena Scanlon Diet: Advance to usual diet Activity on Discharge: No heavy lifting Stand Alone Forms: Patient Portal Discharge page, Work/School Release Activity Restrictions/Additional Instructions: Apply an ice pack for short intervals (20 minutes on, followed by at least 20 minutes off) for the first 2 days. Do not apply heat. Do not use creams, lotions, or topical antibiotics. These can cause infection or allergic reaction. Ok to shower 48 hours after your surgery. Remove dressings in 2 days and replace as needed. You have steri strips (small white cloth strips) covering your incision- these will fall off ~1 week. Follow up in office with Dr. Orourke in 1 week. ([phone]) No heavy lifting (>10lbs) or strenuous activity! Call Your Doctor If: -Your temperature exceeds 101.5? F -You experience excessive pain or swelling -You have an unexpected reaction to medication -You have excessive bleeding -You experience continued vomiting/nausea -Your incision begins to separate -Your incision shows signs of infection such as increased redness, swelling, excessive pain, drainage (light blood or clear fluid is normal) or heat Care Plan Goals: Return to baseline health and resume normal activities following recovery period. Health Concerns: incarcerated incisional hernia SBO Plan of Treatment: s/p repair of incarcerated incisional hernia with mesh Assessment: Doing well post op
--- NOTE | 2023-03-25 12:57 | HO.POSTANES ---
Post Anesthesia Evaluation Post Anesthesia Evaluation Date of Service: 03/25/23 Vital Signs: Vital Signs Temp Pulse Resp BP Pulse Ox O2 Del Method 03/25/23 08:00 98.1 F 76 16 118/85 95 Room Air 03/25/23 02:56 97.4 F 66 18 121/82 96 Room Air Anesthesia: General Endotracheal-GETA Mental Status: Awake Pain Control: Satisfactory Nausea/Vomiting: None Hydration: Adequate Anesthesia-Related Issues: No Anes. Related Issues
== END 2023-03-25 10:45 | disposition home or self-care (01) | DRG 355 ==
LOC: HO.ED 13:12 → HO.SSS 13:22 → HO.EDOVER 17:38 → HO.S3 18:11
PROVIDERS: Physician Assistant; Surgery; Admitting Provider Physician Assistant Surgical; Emergency Provider Emergency Medicine; PCP Family Medicine; Visit Provider Physician Assistant Surgical
PROC: 0WUF0JZ Supplement Abdominal Wall with Synthetic Substitute, Open Approach (ICD-10-PCS; principal; 2023-03-24 13:30)
DX: K43.6 Other and unspecified ventral hernia with obstruction, without gangrene (principal); K21.9 Gastro-esophageal reflux disease without esophagitis; F17.210 Nicotine dependence, cigarettes, uncomplicated; Z71.6 Tobacco abuse counseling; Z79.899 Other long term (current) drug therapy
CPT/HCPCS: 36415; 74177; 80053; 80076; 81003; 82550; 83605; 83690; 85025; 88302; 99285; C1781; J0131; J0665; J0690; J1170; J2250; J2270; J2371; J2405; J2704; J3010; J7120; Q9967

== ENCOUNTER → 2023-03-24 13:21 | Outpatient (BNV) | payer MEDICARE, OTHER, SELFPAY | PROVIDERS: Emergency Provider Emergency Medicine; PCP Family Medicine; Visit Provider Physician Assistant Surgical | DX: K43.6 Other and unspecified ventral hernia with obstruction, without gangrene (principal) | CPT/HCPCS: 49596; 99222; 99238 ==

== ENCOUNTER 2023-04-07 08:58 | Outpatient (AMB) | payer MEDICARE, OTHER, SELFPAY ==
[2023-04-07 09:18] VITALS: BP 114/73; PULSE 99
--- NOTE | 2023-04-07 09:18 | A.OFFVIS_ITS ---
Intake Vital Signs 04/07/23 09:18 Weight 190 lb BP 114/73 Blood Pressure Location Rt brachial Position Sitting Pulse 99 Intake Visit Reasons: S/P Incarcerated ventral hernia Intake Note: Patient here s/p ventral hernia. Reports incision healing well. Denies pain, oozing, itch. No longer taking rx pain meds. Distribution Sales Manager Required: No Accompanied by: Self / Same As Patient Allergies No Known Allergies Allergy (Unverified 04/07/23 09:19) HPI HPI Comments History of Present Illness Details Patient presents for follow-up. All things considered, she is doing quite well. Incisional discomfort is improving. She is moving her bowels. Activity level is progressing. [facility] Medical History Smoker (03/24/23) Surgical History (Updated 04/07/23 @ 09:27 by Duarte Orourke MD) Incarcerated ventral hernia Hx laparoscopic cholecystectomy Household Members: None Housing: House Do you presently have visiting nurse or other home services: No Patient Tobacco Use Status: Current everyday Tobacco user Tobacco use type: Cigarette Cigarettes Per Day: 10 Physical Exam Vital Signs: Last Vital Signs Pulse 99 04/07/23 09:18 BP 114/73 04/07/23 09:18 GI Other: Abdomen soft. Wound clean dry and intact healing very well Assessment & Plan Assessment & Plan (1) Incarcerated ventral hernia: Comment: Dr. Duarte Orourke Code(s): K43.6 - Other and unspecified ventral hernia with obstruction, without gangrene Plan Patient has been given very specific local instructions including avoiding strenuous activities for next 4-6 weeks. I strongly encouraged her to wear her abdominal binder. She will follow-up p.r.n.. Coding Level of Care Code Global (58926) Diagnoses Incarcerated ventral hernia K43.6
== END 2023-04-07 09:26 | disposition home or self-care (01) ==
PROVIDERS: PCP Family Medicine; Visit Provider Surgery
DX: K43.6 Other and unspecified ventral hernia with obstruction, without gangrene (principal)
CPT/HCPCS: 99212

== ENCOUNTER → 2023-04-07 08:58 | Outpatient (BNVA) | payer MEDICARE, OTHER, SELFPAY | PROVIDERS: PCP Family Medicine; Visit Provider Surgery | DX: K43.6 Other and unspecified ventral hernia with obstruction, without gangrene (principal); Z90.49 Acquired absence of other specified parts of digestive tract | CPT/HCPCS: 99212 ==

== ENCOUNTER 2023-08-20 10:15 | Outpatient (REF) | payer MEDICARE, OTHER, SELFPAY | END 2023-08-20 10:16 | disposition home or self-care (01) | LOC: HO.MAMMO 10:15 | PROVIDERS: PCP Family Medicine; Visit Provider Family Medicine | DX: Z12.31 Encounter for screening mammogram for malignant neoplasm of breast (principal) | CPT/HCPCS: 77063; 77067 ==

== ENCOUNTER → 2023-08-20 10:15 | Outpatient (BNV) | payer MEDICARE, OTHER, SELFPAY | PROVIDERS: PCP Family Medicine; Visit Provider Radiology Diagnostic Radiology | DX: Z12.31 Encounter for screening mammogram for malignant neoplasm of breast (principal) | CPT/HCPCS: 77063; 77067 ==

== ENCOUNTER 2023-08-26 11:08 | Outpatient (AMB) | payer MEDICARE, OTHER, SELFPAY ==
--- NOTE | 2023-08-26 11:12 | MHC.OFFVIS ---
Intake Vital Signs 08/26/23 11:14 Weight 190 lb BP 132/80 Blood Pressure Location Rt brachial Position Sitting Pulse 92 Intake Visit Reasons: incisional pain and hard lump, Hx hernia repair Intake Note: Patient c/o incisional pain, hard lump protruding on abd. Became bothersome 1m ago. Patient hx ventral incisional hernia repair on 03-24-23. Sexual Assault Counselor Required: No Accompanied by: Self / Same As Patient Allergies No Known Allergies Allergy (Unverified 08/26/23 11:14) HPI HPI Comments History of Present Illness Details Patient is status post 6 months ago repair of incarcerated strangulated ventral hernia. She now presents here because of a concern for recurrence. She is otherwise tolerating a diet. He is having regular bowel habits. Her activity levels are within normal limits. She has had a swelling/bulge on the left side of the incision which is becoming more symptomatic and increasing in size. Patient is well known to me from the prior emergency surgery in the fall of last year. Chart was reviewed the patient evaluate [facility] Medical History Smoker (03/24/23) Surgical History Incarcerated ventral hernia Hx laparoscopic cholecystectomy Social History Household Members: None Housing: House Do you presently have visiting nurse or other home services: No Patient Tobacco Use Status: Current everyday Tobacco user Tobacco use type: Cigarette Cigarettes Per Day: 10 Physical Exam Vital Signs: Last Vital Signs Pulse 92 08/26/23 11:14 BP 132/80 08/26/23 11:14 Chest Other: Chest breath sounds bilaterally, HS 1 in 2 GI Other: Abdomen very corpulent, soft. Infraumbilical midline incision. Left side of incision demonstrates a incisional hernia measuring approximately 2 cm. Abdomen otherwise benign Assessment & Plan Assessment & Plan (1) Incisional hernia: Code(s): K43.2 - Incisional hernia without obstruction or gangrene Plan Risks, benefits, alternatives of open repair of incisional hernia with possible mesh reviewed the patient and included but not limited to bleeding, infection, recurrence, numbness, pain, scarring and the patient wished to proceed. All questions answered. Arrangements made for this. Coding Level of Care Code Est Pt Level 5 (98892) Diagnoses Incisional hernia K43.2
[2023-08-26 11:14] VITALS: BP 132/80; PULSE 92
== END 2023-08-26 11:47 | disposition home or self-care (01) ==
PROVIDERS: PCP Family Medicine; Visit Provider Surgery
DX: K43.2 Incisional hernia without obstruction or gangrene (principal)
CPT/HCPCS: 99214

== ENCOUNTER → 2023-08-26 11:08 | Outpatient (BNVA) | payer MEDICARE, OTHER, SELFPAY | PROVIDERS: PCP Family Medicine; Visit Provider Surgery | DX: K43.2 Incisional hernia without obstruction or gangrene (principal) | CPT/HCPCS: 99212 ==

== ENCOUNTER → 2023-08-29 11:05 | Day surgery (SDC) | payer MEDICARE, OTHER, SELFPAY ==
--- NOTE | 2023-08-28 11:57 | MHC.SHP ---
Pre-Procedural Eval Section A - 24 Hr Update-Section A only Date of Service: 08/28/23 The patient is an INPATIENT: No Changes since office visit: No Cold of Flu in the past 2 weeks, No New Medical Problems, No Changes in Medication and No Patient answered all questions Section B - Complete if H&P > 30 days Chief Complaint: Incisional hernia without obstruction or gangrene Allergies: Allergies Allergy/AdvReac Type Severity Reaction Status Date / Time No Known Allergies Allergy Unverified 08/26/23 11:14 Plan I have reviewed the history and physical and performed a pertinent physical examination on my patient. No changes have occurred unless specified. Time Spent With Patient Time: Total time managing care of this patient today ____ minutes.
[2023-08-29 11:52] VITALS: BMI 34.7
--- NOTE | 2023-08-29 12:13 | PC.NURSE ---
Case cancelled by Dr. Orourke pt advised office will call to reschedule.
== END ==
PROVIDERS: PCP Family Medicine; Visit Provider Surgery
DX: K43.2 Incisional hernia without obstruction or gangrene (principal); Z53.8 Procedure and treatment not carried out for other reasons

== ENCOUNTER 2023-09-03 10:19 | Inpatient (IN) | payer MEDICARE, OTHER, SELFPAY ==
--- NOTE | 2023-09-01 13:46 | HO.ANESPROP2 ---
HPI - Anesthesia Eval Consult details Narrative: 67yo F for Open Repair Hernia Incisional Reducible with mesh PMFSH Active Problems Active Problems: All Active Problems Incisional hernia (Acute) Incarcerated ventral hernia (Acute) Past Medical History Medical History Smoker (03/24/23) Surgical History Surgical History Incarcerated ventral hernia Hx laparoscopic cholecystectomy History of Problems with Anesthesia: No Social History Social History Household Members: None Housing: House Do you presently have visiting nurse or other home services: No Comment: counts correct Patient Tobacco Use Status: Current everyday Tobacco user Tobacco use type: Cigarette Cigarettes Per Day: 10 service: No Meds Allergies Allergy/AdvReac Type Severity Reaction Status Date / Time No Known Allergies Allergy Unverified 08/26/23 11:14 Home Medications ?Medication ?Instructions ?Recorded ?Confirmed ?Last Taken ?Type multivitamin 1 tab PO DAILY 03/24/23 09/03/23 09/03/23 History omeprazole 20 mg capsule,delayed 20 mg PO DAILY@0630 03/24/23 09/03/23 09/03/23 History release peg 400-propylene glycol (PF) 0.4 1 drp ophthalmic (eye) BID 03/24/23 09/03/23 09/03/23 History %-0.3 % eye drops in a dropperette (Systane (PF)) Assessment and Plan Assessment Anesthesia Assessment: Chart Reviewed Final Anesthetic Review History of Problems with Anesthesia: No
--- NOTE | 2023-09-02 08:48 | MHC.SHP ---
Pre-Procedural Eval Section A - 24 Hr Update-Section A only Date of Service: 09/02/23 The patient is an INPATIENT: No Changes since office visit: No Cold of Flu in the past 2 weeks, No New Medical Problems, No Changes in Medication and No Patient answered all questions Section B - Complete if H&P > 30 days Chief Complaint: Incisional hernia without obstruction or gangrene Allergies: Allergies Allergy/AdvReac Type Severity Reaction Status Date / Time No Known Allergies Allergy Unverified 08/26/23 11:14 Plan I have reviewed the history and physical and performed a pertinent physical examination on my patient. No changes have occurred unless specified. Time Spent With Patient Time: Total time managing care of this patient today ____ minutes.
[2023-09-03] VITALS (14 sets, daily range): BP systolic 110–138; BP diastolic 60–80; PULSE 62–86; RESP 16–18; TEMP 36.1–37; O2SAT 91–100; BMI 34.9
[2023-09-03] MEDS: Lactated Ringers 1,000 ML 100 ML IVCONT (07:55)
--- NOTE | 2023-09-03 10:29 | W.PM.OPN ---
Operative Note Operative Note Date of Service: 09/03/23 Narrative: Preoperative diagnosis; Incisional hernia Postop diagnosis: [] Same Procedure [] Mini-exploratory laparotomy, extensive enterolysis, prior mesh explantation, enterectomy with primary functional end-to-end anastomosis, primary closure incisional hernia Surgeon: [] Sharad Treating Plant Operator: [] Capo Type of Anesthesia: [] General Indication for surgery: [] Intraoperative findings demonstrated dense , extensive and profound adhesions of small bowel to the prior hernia placed mesh with no distinct tissue plane which could be developed between the 2 necessitating enterectomy with primary anastomosis for mesh explantation. Primary closure hernia was then performed. Mesh had torn away from the inferior margin of the prior repair resulting in the hernia. Findings: [] Patient brought to the operating room, placed on operative table in supine position, after adequate level of general anesthesia was induced, the patient's abdomen was prepped and draped in usual sterile fashion. Using a lower midline incision from the prior scar from the patient's previous surgery over the hernia and question, this carried down through skin, subcutaneous tissue, where a large hernia sac was identified and circumferentially dissected down to fascia. Sac was opened where small bowel and omental adhesions were from the sac and reduced. Prior placed mesh had been from the lower half of the incision. Small-bowel adhesions to the anterior abdominal wall and intimately into the mesh were encountered. Meticulous enterolysis was undertaken to free the bowel. The knuckle of bowel adhered to the prior placed mesh could not be without creating a transmural defect. It was then decided to perform an enterectomy of this area which was undertaken using COURTNEY 60 staplers at the desired locations. Mesentery was then taken down using clamps and 3-0 Vicryl ties. Small bowel and part of mesh were then removed. Fascia margins were circumferentially cleared. Functional end-to-end anastomosis using COURTNEY and TA 60 staplers was then performed. Crotch of the anastomosis was buttressed using seromuscular 3-0 silk sutures. Mesenteric defect was closed using 3-0 Vicryl sutures. Abdominal cavity was copiously irrigated, and secured hemostasis. Incisional hernia was closed primarily using interrupted 0 Maxon sutures. (no mesh was used in the repair because of the concern for potential infection with bowel resection performed) Skin was closed using interrupted inverted dermal 3-0 Vicryl sutures followed by Steri-Strips and sterile dressings. Wound was infiltrated 0.5% Marcaine at completion. Sponge, needle, and instrument counts were reported correct. Patient tolerated procedure well and emerged from anesthesia stable condition. Abdominal binder was placed prior to leaving the OR. EBL minimal
[2023-09-03] MEDS: HYDROmorphone HCl 0.5 MG/0.5 ML SYRINGE IVPUSH (10:48)
--- NOTE | 2023-09-03 12:38 | PHA.MEDREC ---
Pharmacy Consult ? Medication Reconciliation Pharmacy has completed the medication reconciliation. Spoke to patient at bedside
[2023-09-03] MEDS: Acetaminophen 1,000 MG/100 ML PIGGYBACK 400 MG IV ×3 (12:54→22:18)
[2023-09-03] MEDS: Lactated Ringers 1,000 ML 80 ML IVCONT ×2 (12:54→23:17)
[2023-09-03 12:55] LABS: Creatinine Clr Calc Pharmacy 77.4; Estimated Glomerular Filt Rate > 60
[2023-09-03] MEDS: Docusate Sodium 100 MG CAPSULE PO (20:44)
[2023-09-04 02:32] VITALS: BP 112/59; PULSE 85; RESP 14; TEMP 36.7; O2SAT 92
[2023-09-04] MEDS: Acetaminophen 1,000 MG/100 ML PIGGYBACK 400 MG IV (04:45)
[2023-09-04] MEDS: Omeprazole 20 MG CAPSULE.DR PO (06:11)
--- NOTE | 2023-09-04 06:15 | PC.NURSE ---
pt went to br more than 3 times. no issues, not much pain, 1 or 2/10, well controlled with IV tylenol. abd dsg d/c/i. abd soft. pt wants to go home after see a doctor. it was a good night with this pt.
[2023-09-04 07:24] VITALS: BP 122/72; PULSE 75; RESP 16; TEMP 36.2; O2SAT 94
--- NOTE | 2023-09-04 08:19 | P.PNGS_ITS ---
Subjective Subjective Date of Service: 09/04/23 Interval history: Feels well this morning, denies pain except with movement but overall comfortable. Tolerating diet. Passing flatus. Wants to go home. Physical Exam 2 Vital Signs: Vital Signs: Last Vital Signs Temp 97.2 F 09/04/23 07:24 Pulse 75 09/04/23 07:24 Resp 16 09/04/23 07:24 BP 122/72 09/04/23 07:24 Pulse Ox 94 09/04/23 07:24 O2 Del Method Room Air 09/04/23 07:24 O2 Flow Rate 2 09/03/23 11:25 BMI result Body Mass Index 34.9 Const: General: comfortable, no acute distress and alert O rientation/consciousness: patient oriented x3 Resp: Effort & Inspection: normal respiratory effort GI: Inspection: No distended and Yes incision (dressing c/d/i) Palpation (GI): Soft to palpation, Tenderness to palpation present (GI) (mild incisional), no guarding and not rigid Percussion: Yes normal to percussion Skin: General skin exam: no rashes or lesions noted Neuro: General: patient oriented x3 and moves all extremities Objective Data Active Medications Al Hydroxide/Mg Hydroxide (Magnesium Hydrox/Alum Hydrox 30 Ml Oral.Susp) 30 ml PO Q4H PRN PRN Reason: Heartburn/Nausea Docusate Sodium (Docusate Sodium 100 Mg Capsule) 100 mg PO BID [facility] Last Admin: 09/04/23 08:02 Dose: Not Given Documented By: MUKESH Non-Admin Reason: Patient Refused Enoxaparin Sodium (Enoxaparin Sodium 40 Mg/0.4 Ml Syringe) 40 mg SUBCUT Q24H [facility] Hydromorphone HCl (Hydromorphone Hcl 1 Mg/Ml Syringe) 0.5 mg IVPUSH Q4H PRN; Protocol PRN Reason: Pain, Severe (Pain Scale 7-10) Acetaminophen (Ofirmev) 1,000 mg in 100 mls @ 400 mls/hr IV Q6H [facility] Last Infusion: 09/04/23 05:00 Dose: Infused Documented By: RIO Lactated Ringer's (Lr) 1,000 mls @ 80 mls/hr IVCONT .[id number] [facility] Last Admin: 09/03/23 23:17 Dose: 80 mls/hr Documented By: RIO Melatonin (Melatonin 3 Mg Tablet) 6 mg PO BEDTIME PRN PRN Reason: Insomnia Omeprazole (Omeprazole 20 Mg Capsule.) 20 mg PO DAILY@0630 [facility] Last Admin: 09/04/23 06:11 Dose: 20 mg Documented By: RIO Ondansetron HCl (Ondansetron Hcl 4 Mg/2 Ml Vial) 4 mg IVPUSH Q8H PRN PRN Reason: Nausea and Vomiting Oxycodone HCl (Oxycodone Hcl Immed Release 5 Mg Tablet) 5 mg PO Q4H PRN PRN Reason: Pain, Moderate(Pain Scale 4-6) Sodium Chloride (0.9 % Sodium Chloride Flush 3 Ml Syringe) 3 ml IVFLUSH QSHIFT [facility] Last Admin: 09/04/23 06:55 Dose: Not Given Documented By: MUKESH Non-Admin Reason: IV Running Labs 09/03/23 12:35 Labs: Laboratory Results - last 24 hr 09/03/23 12:35 Estim Creat Clear Calc 77.4 Estimated GFR > 60 Procedures Date of Service Date of Service: 09/04/23 Progress Note: A&P Assessment and plan (1) Incisional hernia: Status: Acute Plan POD #1 s/p Mini-exploratory laparotomy, extensive enterolysis, prior mesh explantation, enterectomy with primary functional end-to-end anastomosis, primary closure incisional hernia, admitted for observation. Doing well post op, pain well controlled, passing flatus and tolerating diet. Abd benign with appropriate post op tenderness, dressing c/d/i. Stable for dc to home today. F/u in office in 1 week, cont abd binder daily. Patient comfortable with plan. Time Spent With Patient Time: Total time managing care of this patient today ____ minutes. Quality Stroke Does the patient have a stroke diagnosis?: No VTE Prior VTE?: No VTE Risk Level:: Surgical - moderate VTE Device Contraindication: N/A - Device Ordered VTE Drug Contraindication: N/A - Med Ordered
--- NOTE | 2023-09-04 09:18 | MHC.CM.PN ---
IMM 09/04/23, EMR REVIEWED, PTADMITTED S/P HERNIA REPAIR, CM MET W/PT WHO REPORTS SHE IS FULLY INDEP W/ALL CARE, LIVES ALONE, DENIES USE OF DME/SERVICES AND STILL WORKS/DRIVES. PT VERIFIES PCP ON FILE IS CORRECT AND PT EDUCATED ON AND HAS DECLINES TO COMPLETE AN HCP W/CM HOWEVER PT PROVIDED W/BLANK COPY OF HCP AND CM HAS GIVEN PT INSTRUCTIONS ON FILLING IT OUT. PT DISCHARGING HOME SELF CARE ADN DTR FOR TRANSPORT
--- NOTE | 2023-09-04 10:34 | PM.DS ---
DS: Providers Provider Date of Service: 09/04/23 Date of admission: 09/03/23 10:19 Date of discharge: 09/04/23 Primary care physician: Pito Meza MD Attending physician on admission: Duarte Orourke Attending physician on discharge: Duarte Orourke DS: Diagnosis Discharge Diagnosis (1) Incisional hernia: Status: Acute DS: Summary Hospital Course Hospital Course: HPI AT ADMISSION: Patient is status post 6 months ago repair of incarcerated strangulated ventral hernia. She now presents here because of a concern for recurrence. She is otherwise tolerating a diet. He is having regular bowel habits. Her activity levels are within normal limits. She has had a swelling/bulge on the left side of the incision which is becoming more symptomatic and increasing in size. Patient is well known to me from the prior emergency surgery in the fall of last year. Chart was reviewed the patient evaluated. HOSPITAL COURSE: On 09/03/23, Mini-exploratory laparotomy, extensive enterolysis, prior mesh explantation, enterectomy with primary functional end-to-end anastomosis, primary closure incisional hernia was performed by Dr. Orourke without complication. Small bowel adhesions to the anterior abdominal wall and intimately into the mesh were encountered and meticulous enterolysis was undertaken to free the bowel however the knuckle of bowel adhered to the prior placed mesh could not be without creating a transmural defect therefore enterectomy was performed. The patient tolerated the procedure well and was admitted post operatively for observation. She had an uneventful recovery course. On POD #1, she felt well with good pain control. She was tolerating a solid diet. She was passing flatus. Her abdomen was benign with appropriate post op tenderness and clean/dry dressing. She felt ready for discharge. She was discharged to home on 09/04/23 in stable condition. She is to follow up in the office in 1 week. Status at Discharge Functional status at discharge: independent ambulation Overall status at discharge: patient is progressing back to baseline Time Attestation Discharge Coordination Time (in mins): 30 Quality: Safe Use of Opioids Does Pt have an Active Cancer Diagnosis on the Problem List?: No Quality: Stroke Does the patient have a stroke diagnosis?: No Physical Exam Vital Signs: Vital Signs: Last Vital Signs Temp 97.2 F 09/04/23 07:24 Pulse 75 09/04/23 07:24 Resp 16 09/04/23 07:24 BP 122/72 09/04/23 07:24 Pulse Ox 94 09/04/23 07:24 O2 Del Method Room Air 09/04/23 07:24 O2 Flow Rate 2 09/03/23 11:25 BMI result Body Mass Index 34.9 DS: Data Data Completed and Pending Completed studies during hospitalization [Text1]: Procedures Supplement Abdominal Wall with Synthetic Substitute, Open Approach (03/24/23) Pending studies at discharge: Pending at discharge 09/03/23 09:31 Surgical [PTH] Routine Labs on day of discharge: Laboratory Results - last 24 hr 09/03/23 12:35 Creatinine 0.74 Estim Creat Clear Calc 77.4 Estimated GFR > 60 Discharge Plan Discharge Anticipated Discharge Date/Time: 09/04/23 08:22 Patient Disposition: Home, Self-Care Discharge Diagnosis: s/p repair of incisional hernia, small bowel resection Referrals: Pito Meza MD [Primary Care Provider] - 1 Week Duarte Orourke MD [Physician] - 1 Week Discharge Medications: New hydrocodone-acetaminophen 5-325 mg tablet 1 tab PO Q4-6H PRN (Reason: pain) Qty: 30 0RF Rx Instructions: Partial Fill upon patient request. docusate sodium [Colace] 100 mg capsule 100 mg PO BID PRN (Reason: constipation) Qty: 30 0RF Continued multivitamin Tablet 1 tab PO DAILY omeprazole 20 mg Capsule,Delayed Release(Dr/Ec) 20 mg PO DAILY@0630 Systane (PF) 0.4-0.3 % Dropperette 1 drp OPHTHALMIC (EYE) BID Discharge Orders: Discharge Order (Routine); Ordered 09/04/23 Ordered By: Praveena Scanlon Diet: Advance to usual diet Activity on Discharge: No heavy lifting Stand Alone Forms: Patient Portal Discharge page Print Language: Moldovan Activity Restrictions/Additional Instructions: Ice to wound 20 minutes several times today and tomorrow. May shower in 2 days. Remove outside dressing only. Leave Steri-Strips intact. No strenuous activities, continue to wear abdominal binder daily. Care Plan Goals: Return to baseline health and resume normal activities following recovery period. Health Concerns: incisional hernia Plan of Treatment: Mini-exploratory laparotomy, extensive enterolysis, prior mesh explantation, enterectomy with primary functional end-to-end anastomosis, primary closure incisional hernia F/u in office in 1 week Abdominal binder Assessment: Doing well post op Discharge Date/Time: 09/04/23 09:41
--- NOTE | 2023-09-04 11:41 | HO.POSTANES ---
Post Anesthesia Evaluation Post Anesthesia Evaluation Date of Service: 09/03/23 Vital Signs: Vital Signs Temp Pulse Resp BP Pulse Ox O2 Del Method 09/04/23 07:24 97.2 F 75 16 122/72 94 Room Air 09/04/23 02:32 98.1 F 85 14 112/59 L 92 Anesthesia: General LMA Mental Status: Awake Pain Control: Satisfactory Nausea/Vomiting: None Hydration: Adequate Anesthesia-Related Issues: No Anes. Related Issues
== END 2023-09-04 09:41 | disposition home or self-care (01) | DRG 909 ==
LOC: HO.SSSA 10:20 → HO.S3 11:54
PROVIDERS: Admitting Provider Physician Assistant Surgical; PCP Family Medicine; Visit Provider Surgery
PROC: 0DB80ZZ Excision of Small Intestine, Open Approach (ICD-10-PCS; principal; 2023-09-03 08:40)
DX: T85.628A Displacement of other specified internal prosthetic devices, implants and grafts, initial encounter (principal); K43.2 Incisional hernia without obstruction or gangrene; F17.210 Nicotine dependence, cigarettes, uncomplicated; Z71.6 Tobacco abuse counseling; Y81.8 Miscellaneous general- and plastic-surgery devices associated with adverse incidents, not elsewhere classified; Z79.899 Other long term (current) drug therapy
CPT/HCPCS: 36415; 82565; 88302; 88307; J0131; J0690; J1170; J2250; J2704; J2795; J3010; J7120

== ENCOUNTER → 2023-09-03 10:19 | Outpatient (BNV) | payer MEDICARE, OTHER, SELFPAY | PROVIDERS: Admitting Provider Physician Assistant Surgical; PCP Family Medicine; Visit Provider Physician Assistant Surgical | DX: K43.2 Incisional hernia without obstruction or gangrene (principal) | CPT/HCPCS: 44140; 99024 ==

== ENCOUNTER 2023-09-15 14:19 | Outpatient (AMB) | payer MEDICARE, OTHER, SELFPAY ==
--- NOTE | 2023-09-15 14:45 | MHC.OFFVIS ---
Intake Visit Reasons: S/P open repair incisional hernia w/mesh Intake Note: Patient here s/p incisional hernia w/mesh repair. Reports incisions healing well. Patient c/o: no concerns. SX: 09-09-23 Yardage Control Operator Forming Required: No Accompanied by: Self / Same As Patient Allergies No Known Allergies Allergy (Unverified 09/15/23 14:46) HPI Comments Details: Patient presents for follow-up. She is doing quite well. He has tolerating a diet. Having regular bowel habits. She is increasing her activity level. She has minimal incisional discomfort. Patient has been wearing her abdominal binder. [facility] Medical History Smoker (03/24/23) Surgical History Incisional hernia (09/09/23) Incarcerated ventral hernia Hx laparoscopic cholecystectomy Social History Household Members: None Housing: House Do you presently have visiting nurse or other home services: No Comment: counts correct Patient Tobacco Use Status: Current everyday Tobacco user Tobacco use type: Cigarette Cigarettes Per Day: 10 service: No Physical Exam GI Other: Abdomen is soft. Incision clean dry and intact healing well Assessment & Plan Assessment & Plan (1) Status post hernia repair: Code(s): Z98.890 - Other specified postprocedural states; Z87.19 - Personal history of other diseases of the digestive system Category: Medical Plan Patient is continue local therapy and avoid strenuous activity index 46 weeks time. Were abdominal binder as tolerated. All questions answered. Patient will otherwise follow-up p.r.n.. Coding Level of Care Code Global (35891) Diagnoses Status post hernia repair Z98.890; Z87.19
== END 2023-09-15 15:11 | disposition home or self-care (01) ==
PROVIDERS: PCP Family Medicine; Visit Provider Surgery
DX: Z98.890 Other specified postprocedural states (principal); Z87.19 Personal history of other diseases of the digestive system
CPT/HCPCS: 99024

== ENCOUNTER → 2023-09-15 14:19 | Outpatient (BNVA) | payer MEDICARE, OTHER, SELFPAY | PROVIDERS: PCP Family Medicine; Visit Provider Surgery | DX: Z87.19 Personal history of other diseases of the digestive system (principal); Z98.890 Other specified postprocedural states | CPT/HCPCS: 99212 ==

== ENCOUNTER 2023-12-02 10:23 | Outpatient (AMB) | payer MEDICARE, OTHER, SELFPAY ==
--- NOTE | 2023-12-02 10:25 | A.OFFVIS_ITS ---
Vital Signs 12/02/23 10:32 Weight 194 lb BP 157/89 H Blood Pressure Location Rt brachial Position Sitting Pulse 96 Intake Visit Reasons: ? Incisional hernia, bulge Intake Note: Patient here c/o incisional hernia bulging out. Lump on lt lower abd tender to touch. Wears waist band to help with support. Patient hx of incisional hernia repair on 09-03-2023. Supervisor Feed Mill Required: No Accompanied by: Self / Same As Patient Allergies No Known Allergies Allergy (Unverified 12/02/23 10:32) HPI Comments Details: Patient presents because of a recurrence of her infraumbilical incisional hernia. It has been going on a few weeks time. His increasing in size, become symptomatic. Patient was well known to me. She had incarcerated hernia in the fall of last year. This was repaired uneventfully. Patient then developed incisional hernia. Looking at the operative note, this is quite difficult repair that was done primarily because of marked bowel adhesions to the mesh that required bowel surgery and prevented mesh being placed. Patient otherwise tolerating a diet having regular bowel habits. [facility] Medical History Smoker (03/24/23) Surgical History Incisional hernia (09/09/23) Incarcerated ventral hernia Hx laparoscopic cholecystectomy Social History Household Members: None Housing: House Do you presently have visiting nurse or other home services: No Comment: counts correct Patient Tobacco Use Status: Current everyday Tobacco user Tobacco use type: Cigarette Cigarettes Per Day: 10 service: No Physical Exam Vital Signs: Last Vital Signs Pulse 96 12/02/23 10:32 BP 157/89 H 12/02/23 10:32 GI Other: Patient was examined both supine and standing with Valsalva. Infraumbilical incision well healed. Patient is a very large reducible incisional hernia Assessment & Plan Assessment & Plan (1) Recurrent incisional hernia: Code(s): K43.2 - Incisional hernia without obstruction or gangrene Category: Surgical Plan Because of the recurrent nature of this, I will suggest the patient be seen by Lance Ashby, at [facility] [place] who is a regional explored and recurrent recurrent incisional hernias. Patient understands and arrangements will be made for this. All questions answered. Coding Level of Care Code Est Pt Level 4 (51093) Diagnoses Recurrent incisional hernia K43.2
[2023-12-02 10:32] VITALS: BP 157/89; PULSE 96
== END 2023-12-02 10:38 | disposition home or self-care (01) ==
PROVIDERS: PCP Family Medicine; Visit Provider Surgery
DX: K43.2 Incisional hernia without obstruction or gangrene (principal)
CPT/HCPCS: 99024

== ENCOUNTER → 2023-12-02 10:23 | Outpatient (BNVA) | payer MEDICARE, OTHER, SELFPAY | PROVIDERS: PCP Family Medicine; Visit Provider Surgery | DX: K43.2 Incisional hernia without obstruction or gangrene (principal) | CPT/HCPCS: 99212 ==

== ENCOUNTER 2024-10-07 12:35 | Outpatient (REF) | payer MEDICARE, OTHER, SELFPAY ==
--- OUTSIDE RECORDS SUMMARY | 2024-10-07 12:37 | XMS_ITS | Clinical Summary ---
Author Organization [facility] Address [address] [place] [address] Care Team Providers Care Tour Coordinator Name Role Phone Unavailable Primary Care Provider Unavailabl e Medications Medication Sig Dispensed Refills Start Date End Date Status omeprazole (PriLOSEC OTC) 20 MG tablet Take 1 tablet (20 mg total) by mouth. 0 07/07/2017 Active omeprazole (PriLOSEC) 20 MG capsule Take 1 capsule (20 mg total) by mouth. 0 Active Active Problems Problem Noted Date Diagnosed Date Recurrent ventral hernia 12/31/2023 Class 2 obesity 12/31/2023 Smoking 12/31/2023 Social History Tobacco Use Types Packs/Day Years Used Date Smoking Tobacco: Never Assessed Sex and Gender Information Value Date Recorded Sex Assigned at Not on file Gender Identity Not on file Sexual Orientation Not on file Job Start Date Occupation Industry Not on file Not on file Not on file Last Filed Vital Signs Vital Sign Reading Time Taken Comments Blood Pressure 135/82 12/31/2023 1:31 PM EDT Pulse 80 12/31/2023 1:31 PM EDT Temperature 36.9 ??C (98.4 ??F) 12/31/2023 1:31 PM ED T Respiratory Rate - - Oxygen Saturation 95% 12/31/2023 1:31 PM EDT Inhaled Oxygen Concentration - - Weight 88.9 kg (196 lb) 12/31/2023 1:31 PM EDT Height 154.9 cm (5' 1 ) 12/31/2023 1:31 PM EDT Body Mass Index 37.03 12/31/2023 1:31 PM EDT Plan of Treatment Health Maintenance Due Date Last Done Comments Hepatitis C Screening 1955 Depression Screening 1969 BMI Counseling 10/19/1975 Preventative Health Evaluation 10/19/1975 DTap / Tdap / Td (1 - Tdap) 1976 Colon Cancer Screening (Colonoscopy) 2002 Breast Cancer Screening (Mammogram) 10/19/2007 Shingrix-Zoster Vaccine (1 o f 2) 10/19/2007 Fall Risk Assessment 2022 Osteoporosis Screening (DEXA Scan) 2022 Pneumococcal Vaccine (2 of 2 - PCV) 2022 07/07/2017 COVID-19 Vaccine (3 - 2023-2 5 season) 2024 09/27/2020, 09/06/2020 Influenza Vaccine (#1) 2024 03/16/2018 RSV Adult > 60+ Yrs or (1 - 1-dose 75+ series) 2032 Hepatitis B Vaccines Aged Out No long er eligible based on patient's age to complete this topic RSV Ped < 20 months Aged Out No longe r eligible based on patient's age to complete this topic Mary Jo Kelly Personal/Family Self 1955 [address] [place] [address]
== END 2024-10-07 12:36 | disposition home or self-care (01) ==
LOC: HO.MAMMO 12:35
PROVIDERS: PCP Family Medicine; Visit Provider Family Medicine
DX: Z12.31 Encounter for screening mammogram for malignant neoplasm of breast (principal)
CPT/HCPCS: 77063; 77067

== ENCOUNTER → 2024-10-07 12:45 | Outpatient (BNV) | payer MEDICARE, OTHER, SELFPAY | PROVIDERS: PCP Family Medicine; Visit Provider Internal Medicine | DX: Z12.31 Encounter for screening mammogram for malignant neoplasm of breast (principal) | CPT/HCPCS: 77063; 77067 ==